=== PATIENT | female | born 1965 | race Caucasian/White ===

== ENCOUNTER → 2020-02-26 12:01 | Outpatient (REF) | payer OTHER, SELFPAY | LOC: ANHLAB 12:01 | PROVIDERS: PCP Family Medicine Adolescent Medicine; Visit Provider Nurse Practitioner | DX: C44.612 Basal cell carcinoma of skin of right upper limb, including shoulder (principal); C44.619 Basal cell carcinoma of skin of left upper limb, including shoulder | CPT/HCPCS: 88305 ==

== ENCOUNTER 2020-12-02 10:38 | Outpatient (CLI) | payer OTHER, SELFPAY ==
--- NOTE | 2020-12-02 10:52 | ECG_ITS ---
Measurements Intervals [place] Rate: 72 P: 53 [place]: 151 QRS: 31 QRSD: 80 T: 19 QT: 367 QTc: 404 Interpretive Statements SINUS RHYTHM BASELINE ARTIFACT- I, II, III, AVR, AVL, AVF NORMAL ECG Electronically Signed On 12-02-2020 11:56:46 CDT by Thony Christine D.O.
[2020-12-02 11:26] LABS: Hematocrit 39.4 % (37.0-47.0); Hemoglobin 13.3 g/dL (12.0-15.0)
== END 2020-12-02 10:39 | disposition home or self-care (01) ==
PROVIDERS: Anesthesiology; PCP Family Medicine Adolescent Medicine; Visit Provider Surgery Plastic and Reconstructive Surgery
DX: Z01.810 Encounter for preprocedural cardiovascular examination (principal); Z41.1 Encounter for cosmetic surgery
CPT/HCPCS: 36415; 85014; 85018; 93005

== ENCOUNTER → 2020-12-06 00:13 | Outpatient (CLI) | payer OTHER, SELFPAY ==
[2020-12-06 19:13] LABS: SARS-CoV-2 RNA PCR Negative
== END ==
PROVIDERS: PCP Family Medicine Adolescent Medicine; Visit Provider Surgery Plastic and Reconstructive Surgery
DX: Z01.812 Encounter for preprocedural laboratory examination (principal); Z20.822 Contact with and (suspected) exposure to COVID-19
CPT/HCPCS: C9803; U0003; U0005

== ENCOUNTER 2020-12-09 00:33 | Day surgery (SDC) | payer OTHER, SELFPAY ==
[2020-11-28 14:58] VITALS: BMI 25.6
[2020-12-09] VITALS (9 sets, daily range): BP systolic 106–153; BP diastolic 70–91; PULSE 76–109; RESP 10–20; TEMP 36.3–37.1; O2SAT 93–100
--- NOTE | 2020-12-09 06:35 | WPDANESEPPF ---
Anes - Initial Pre Proc Eval Procedure: Operation Date: 12/09/20 07:30 Proposed Procedures p Bilateral Upper Eyelid Blepharoplasty - Sha Thompson MD s Face And Neck Lift With Facial Fat Grafting - Sha Thompson MD Date/Time: 12/09/20 06:35 Surgeon: Sha Thompson MD Pre Op Diagnosis: Dermatochalasis, Skin Laxity Patient Data Age: 54 Gender: F Height: 5 ft 2 in Weight: 63.5 kg Allergies Allergy/AdvReac Type Severity Reaction Status Date / Time No Known Allergies Allergy Verified 11/28/20 14:57 Home Medications Medication Instructions Recorded Confirmed Type docusate sodium 100 mg capsule 100 mg PO DAILY #14 cap 11/24/20 11/28/20 Rx ondansetron HCl 4 mg tablet 4 mg PO Q8H #28 tablet 11/24/20 11/28/20 Rx oxycodone-acetaminophen 5 mg-325 1 tablet PO Q6H PRN #15 tablet 11/24/20 11/28/20 Rx mg tablet biotin 10,000 mcg PO DAILY 11/28/20 11/28/20 History Patient hx anesthesia problems: none Family hx anesthesia problems: none PMFSH Social History Social History Smoking status: Never smoker Tobacco type: cigarettes Alcohol intake: never Substance use: never Substance use type: does not use Living arrangements: with family Spiritual care concerns: No Anes - Eval Final PreProcedure Day of Procedure 12/09/20 06:35 Patient weight: normal Heart: regular rate and rhythm Lungs: clear to auscultation Airway: Mallampati scale class 1 Neurological: alert and oriented Last oral intake: >/= 8 hours ASA classification: I Emergent: no Anesthetic plan: proceed Anesthesia type and monitoring: general ETT and standard monitoring Informed Consent: The patient's anesthetic plan and its attendant risks and benefits were discussed with the patient/family/POA. Questions were solicited and answers provided to the satisfaction of the patient/family/POA.
--- NOTE | 2020-12-09 06:46 | WPDHPUPDATE1 ---
History and Physical Update Update Date/Time: 12/09/20 06:46 History and Physical has been reviewed, including an updated exam of the patient. There are NO changes in the patient's condition. Risks, benefits, and alternatives have been discussed and questions answered. Patient agrees to proceed with procedure.
[2020-12-09] MEDS: LACTATED RINGERS 1,000 ML 30 ML IV CONT ×2 (06:50→13:18)
[2020-12-09 07:09] LABS: Urine Cotinine NEGATIVE
--- NOTE | 2020-12-09 07:17 | PM.PROC ---
Procedure Note - Detailed Date of procedure: 12/09/20 Pre-op diagnosis: Dermatochalasis, Skin Laxity Post-op diagnosis: same Procedure performed: 1. Bilateral upper eyelid blepharoplasty 2. Face and neck lift 3. Facial fat graft Description of procedure: Patient was marked in the preoperative holding area with her and her 's verification. Risks, benefits, alternatives were discussed in extensive detail. Want them to be very realistic about the risks involved as well as expectations. Made sure answered all of their questions are satisfaction. We discussed risks in great detail including but not limited to permanent dry eyes, visual changes, loss of vision, contour irregularities, asymmetry, and facial nerve injury. All questions answered and consent obtained. Patient was taken to the operating room placed supine on the operating room table. Anesthesia was provided by anesthesiology and prepped and draped in a standard sterile fashion. Surgical time-out was taken. 14 gauge needle was used to make a puncture site at the abdomen after thorough abdominal examination. I tumesced a tumescent solution. Once adequate time for hemostasis I used a 3 mm multi hole suction cannula to obtain the lipoma aspirate. Prior to use I did I will allow adequate time for separation on the back table using the central portion only later in the procedure. Preoperatively and prior to injection I did a pinch test again to make sure there is no lagophthalmos. 1% lidocaine and 0.25% Marcaine with epinephrine was used anesthetize for the upper eyelid blepharoplasty. Fifteen blade used to make an incision in excise the skin flap. I opened the medial and middle compartments making sure removed only what was clearly excess adiposity. This was closed using a running subcuticular 4-0 Prolene. I tumesced the face with a tumescent solution. Gave adequate time for hemostasis. I was careful to avoid the areas for planned fat grafting. Fat grafting was completed in the temporal region, zygomatic, under eyes as well as along nasolabial and marionette lines and is necessary for facial contouring based on photographs she provided, conversation, and observations. This was with a single port 1.2mm cannula. Total fat grafting volume 22cc. Fifteen blade used to make a submental incision. She had a previous submental scar however this was too far anterior and had to go posterior to this. Dissection was continued down elevated well-vascularized skin flaps along the neck. Identified the platysma and elevated sub platysmal until full exposure of the submental triangle and partially submandibular. Once I was happy with the contour of the submental neck 15 blade used to make the remainder of the incisions. I elevated skin flaps just as necessary for good visualization. I did SMAS plication based on her preoperative plan with 2-0 PDS then 3-0 Vicryl. I removed sub platysmal fat just as necessary to provide a good contour. I plicated the anterior digastric muscles using 3-0 Vicryl. I divided the platysma as necessary. This was repaired using 3-0 Vicryl. Bilateral 10 mm Spencer drains were placed which were brought out postauricular and sutured in place with 3-0 Vicryl. The left drain was deep to the platysma the right drain was anterior to the platysma. I irrigated the pockets. Verified strict hemostasis. Verified good contour. Hemoderm was used bilateral. I then tailor tacked the skin flaps under no tension and position. These were trimmed as necessary. Repaired with 4-0 Monocryl. Along the hairline a use lamont. Preauricular I used 5 0 nylon. Postauricular 5 0 chromic. I secured her upper eyelid blepharoplasty sutures in place using Steri-Strips. Dressings placed. Anesthesia: GETA Surgeon: Sha Thompson MD Estimated blood loss (mL): 50 Drains: Yes (Bilateral 10 mm Spencer) Packing: No Pathology: none sent Complications: No immediate complications Condition: stab
[2020-12-09] MEDS: ceFAZolin 2 GM/D5W 50 ML 2 GM/50 ML BAG IVPB (07:27)
[2020-12-09] MEDS: LIDO 1%/EPINEPHRINE 1:100,000 50 ML VIAL 10 ML INFILTRATE (09:06)
[2020-12-09] MEDS: ceFAZolin SODIUM 1 GM VIAL 2 GM IV PUSH (11:27)
[2020-12-09] MEDS: fentaNYL CITRATE INJ (*CRX) 100 MCG/2 ML VIAL 25 MCG IV PUSH (14:17)
[2020-12-09] MEDS: MORPHINE SULFATE (*CRX) 2 MG/ML INJ IV PUSH (14:41)
[2020-12-09] MEDS: LACTATED RINGERS 1,000 ML 125 ML IV CONT (14:42)
--- NOTE | 2020-12-09 15:06 | PC.NURSE ---
This patient, Juliana Glover, was received from PACU on 12/09/20 at 1454. Patient/family oriented to unit policies and routines
[2020-12-09] MEDS: TETRACAINE HCL 0.5% OPHTH SOLN 4 ML BTL 1 DROP EACH EYE (15:15)
[2020-12-09] MEDS: TETRACAINE HCL 0.5% OPHTH SOLN 4 ML BTL 1 DROP LEFT EYE (16:00)
[2020-12-09] MEDS: BALANCED SALT SOLN OPHTH IRRIG 30 ML BTL EACH EYE (16:15)
--- NOTE | 2020-12-09 16:15 | PC.NURSE ---
Dr. Thompson at bedside. Eye flushed with BSS and Tetracine eye dropps placed in left eye. Pt. states that eye is feeling a bit better. Dr. Thompson remains at bedside discussing plan of care with pt. Pt. more relaxed and comfortable at this time. Order received to allow pt. to keep eye gel at bedside and to use when necessary. Pt. verbalized understanding.
[2020-12-09] MEDS: carisoprodoL (*CRX) 350 MG TABLET PO ×2 (18:00→23:33)
[2020-12-09] MEDS: oxyCODONE/ACETAMINOPHEN (*CRX) 5-325 MG TABLET PO ×2 (18:00→23:33)
[2020-12-09] MEDS: DOCUSATE SODIUM 100 MG CAPSULE PO (20:27)
[2020-12-10] VITALS: RESP 20; O2SAT 100
[2020-12-10 05:00] VITALS: BP 124/86; PULSE 76; RESP 20; TEMP 36.8; O2SAT 100
[2020-12-10] MEDS: oxyCODONE/ACETAMINOPHEN (*CRX) 5-325 MG TABLET PO (05:48)
[2020-12-10] MEDS: carisoprodoL (*CRX) 350 MG TABLET PO (05:49)
--- NOTE | 2020-12-10 06:58 | WPDPN ---
Progress Note: A&P Assessment and Plan (1) Dermatochalasis of both upper eyelids: Code(s): H02.831 - Dermatochalasis of right upper eyelid; H02.834 - Dermatochalasis of left upper eyelid Status: Acute Assessment and Plan: She is doing very well after Bilateral upper eyelid blepharoplasty Face and neck lift Facial fat grafting Will discharge home. She has a full list of instructions. Today we spent extensive time discussing the care. What to monitor for. I will see her back. She will call with any questions or concerns. (2) Encounter for cosmetic surgery: Code(s): Z41.1 - Encounter for cosmetic surgery Status: Acute Time Spent With Patient Time with patient: 15 - 25 minutes Review of Systems Review of Systems: All systems reviewed & are unremarkable except as noted in HPI and below Exam Narrative: Exam Narrative: CN 2-12 grossly intact. PERRLA EOMI. Normal gross vision. Healing well. No signs of infection. No hematoma. No seroma. Good color and capillary refill. No calf tenderness. Negative Homans. Objective Data Vital Signs Vital Signs: Vital Signs - 24 hr 12/09/20 07:00 12/09/20 13:28 12/09/20 13:43 Temperature 36.3 C L 37.1 C 36.6 C Pulse Rate 76 109 H 87 Respiratory Rate 18 10 L 12 Blood Pressure 153/91 H 106/70 107/78 Pulse Oximetry 99 98 94 12/09/20 13:58 12/09/20 14:12 12/09/20 15:00 Temperature 36.3 C L Pulse Rate 87 91 89 Respiratory Rate 12 16 18 Blood Pressure 117/84 119/74 123/73 Pulse Oximetry 93 94 12/09/20 18:20 12/09/20 18:30 12/09/20 23:30 Temperature 37.0 C 36.5 C Pulse Rate 89 90 Respiratory Rate 20 20 20 Blood Pressure 113/72 112/77 Pulse Oximetry 100 100 100 12/10/20 00:00 12/10/20 05:00 Temperature 36.8 C Pulse Rate 76 Respiratory Rate 20 20 Blood Pressure 124/86 Pulse Oximetry 100 100 Intake/Output Intake/Output: Intake & Output 12/07/20 12/08/20 12/09/20 12/10/20 23:59 23:59 23:59 23:59 Intake Total 1070 Output Total 48 Balance 1022 Meds/Results Medications: Active Medications Generic Name Dose Route Start Last Admin Trade Name Freq PRN Reason Stop Dose Admin Artificial Tears 1 drop 12/09/20 15:01 Artificial Tears Op Soln 15 Ml Bottle EACH EYE QID PRN Dry Eye(s) Carisoprodol 350 mg 12/09/20 18:00 12/10/20 05:49 Carisoprodol (*Crx) 350 Mg Tablet PO 350 mg Q6HR OH Administration Docusate Sodium 100 mg 12/09/20 21:00 12/09/20 20:27 Docusate Sodium 100 Mg Capsule PO 100 mg Q12HR OH Administration Enoxaparin Sodium 40 mg 12/10/20 09:00 Enoxaparin 40 Mg/0.4 Ml Syringe SUB-Q DAILY OH Morphine Sulfate 2 mg 12/09/20 13:33 12/09/20 14:41 Morphine Sulfate (*Crx) 2 Mg/Ml Inj IV PUSH 2 mg Q2H PRN Administration Pain Ondansetron HCl 4 mg 12/09/20 13:33 Ondansetron Inj 4 Mg/2 Ml Vial IV PUSH Q6H PRN Nausea Oxycodone/Acetaminophen 1 - 2 tablet 12/09/20 13:33 12/10/20 05:48 Oxycodone/Acetaminophen (*Crx) 5-325 Mg Tablet PO 2 tablet Q6H PRN Administration Pain Tetracaine HCl 1 drop 12/09/20 16:55 12/09/20 16:00 Tetracaine Hcl 0.5% Ophth Soln 4 Ml Btl LEFT EYE 1 drop Q6H PRN Administration Pain Labs Labs: Laboratory Results - last 24 hr 12/09/20 06:44 Cotinine Negative Subjective Date/time seen: 12/10/20 06:58 Yesterday evening and went to see her if she was having significant left eye pain. She felt like something was in the eye. There a washed out her eye, use tetracaine eyedrops and evaluated. There is a small foreign material that appeared to be dust or some other foreign material. White very small in nature. Came out easily. Following this she has been using Gentyle gel and her discomfort has essentially resolved. She feels like she has normal gross vision. No complaints and doing well.
--- NOTE | 2020-12-10 07:04 | P.DS_ITS ---
DS: Admitting Diagnosis Admitting Diagnosis Admitting Diagnosis: Dermatochalasis bilateral upper eyelids Encounter cosmetic surgery DS: Discharge Diagnosis Discharge Diagnosis (1) Dermatochalasis of both upper eyelids: Code(s): H02.831 - Dermatochalasis of right upper eyelid; H02.834 - Dermatochalasis of left upper eyelid Status: Acute (2) Encounter for cosmetic surgery: Code(s): Z41.1 - Encounter for cosmetic surgery Status: Acute DS: Summary Hospital Course Hospital Course: She underwent: * Bilateral upper eyelid blepharoplasty * Face and neck lift * Facial fat graft Postoperatively she initially had some discomfort in the left eye. We able to irrigate the eye and she had significant improvement in his had no pain since. Otherwise done very well. Will discharge home. Time Spent with Patient Time attestation: Total time spent providing and/or coordinating discharge services: 20 minutes Exam Narrative: Exam Narrative: CN 2-12 grossly intact. PERRLA EOMI. Normal gross vision. Healing well. No signs of infection. No hematoma. No seroma. Good color and capillary refill. No calf tenderness. Negative Homans. DS: Data Data Completed and Pending Labs on day of discharge: Labs from last 24 hours 12/09/20 06:44 Cotinine Negative Discharge Plan Discharge Patient Disposition: Home, Self-Care Discharge Instructions: POST OPERATIVE DISCHARGE INSTRUCTIONS FOR SHA THOMPSON M[facility] [address] [place] [address] * No driving for 24 hours after anesthesia and while you are taking pain medication. * Take all prescribed medication as directed * Diet as tolerated. * No lifting or activity that raises blood pressure for 48 hours. * Regular walking / ambulation. * No showering until directed to. Once you shower do not take pain medication before showering as the combination of medication and heat may cause you to feel dizzy or pass out. * No pools or tubs for 2 weeks. * Call with any questions or concerns. * Dressing Care: May shower. * GenTyle eye gel or intment (not drops) as needed. If you have any questions or concerns, please call the office . If it is after hours you will be directed to the stationary engineer exchange. Shortness of breath, chest pain, or other medical emergency dial 911 / proceed to the Emergency Room. Patient Instructions: [facility] Drain Care (DC) Stand Alone Forms: General Discharge Instructions Follow-up/Referrals: Sha Thompson MD [Physician] - Other (f/u Tuesday12/12/2020 for drain removal f/u Tuesday12/15/2020 for suture removal) Discharge Medications: Continued ondansetron HCl [Zofran] 4 mg tablet 4 mg PO Q8H Qty: 28 RF: 0 docusate sodium [Colace] 100 mg capsule 100 mg PO DAILY Qty: 14 RF: 0 oxycodone-acetaminophen [Percocet] 5-325 mg tablet 1 tablet PO Q6H PRN (Reason: pain) Qty: 15 RF: 0 biotin 10,000 mcg Tablet,Disintegrating 10,000 mcg PO DAILY RF: 0
--- NOTE | 2020-12-10 07:52 | WPDANESPN ---
Anes - Prog Note Post-Op Date/Time: 12/10/20 07:52 Cardiovascular status: normal Respiratory status: normal Airway patency: baseline Mental status: baseline Post-Op hydration status: normal Vital Signs: Last Vital Signs Temp 36.8 C 12/10/20 05:00 Pulse 76 12/10/20 05:00 Resp 20 12/10/20 05:00 BP 124/86 12/10/20 05:00 Pulse Ox 100 12/10/20 05:00 Pain Score (VAS): 2/10 I/O: Intake & Output 12/09/20 12/09/20 12/10/20 15:59 23:59 07:59 Intake Total 895 249 0200 Output Total 48 8 Balance 680 886 1192 Post-procedural complaints: none Patient Feedback: Patient satisfied with anesthetic care.
[2020-12-10 08:15] VITALS: BP 116/80; PULSE 77; RESP 16; TEMP 36.6; O2SAT 98
[2020-12-10] MEDS: ONDANSETRON INJ 4 MG/2 ML VIAL IV PUSH (08:31)
[2020-12-10] MEDS: ENOXAPARIN 40 MG/0.4 ML SYRINGE SUB-Q (08:32)
[2020-12-10] MEDS: DOCUSATE SODIUM 100 MG CAPSULE PO (08:32)
== END 2020-12-10 11:55 | disposition home or self-care (01) ==
LOC: ANHSURGERY 08:33 → ANHOB2 14:21
PROVIDERS: PCP Family Medicine Adolescent Medicine; Visit Provider Surgery Plastic and Reconstructive Surgery
PROC: (CPT 15822; principal; 2020-12-09 07:30)
PROC: (CPT 15824; 2020-12-09 07:30)
DX: Z41.1 Encounter for cosmetic surgery (principal); H02.834 Dermatochalasis of left upper eyelid; H02.831 Dermatochalasis of right upper eyelid; L57.4 Cutis laxa senilis; Z79.899 Other long term (current) drug therapy
CPT/HCPCS: 15822; 15829; 15773; 36415; 80307; 85014; 85018; 93005; 99199; A9270; C9803; J0131; J0171; J0690; J1100; J1170; J1650; J2250; J2270; J2370; J2405; J2704; J3010; J7120; Q9968; U0003; U0005

== ENCOUNTER 2025-04-04 10:44 | Outpatient (CLI) | payer BC, SELFPAY ==
--- NOTE | ~2025-04-04 | US_ITS ---
EXAMINATION: US pelvic complete w TV DATE: 04/04/2025 11:21 INDICATION: Secondary ovarian failure TECHNIQUE: Multiple transabdominal and endovaginal sonographic images of the pelvis were obtained. COMPARISON: None. FINDINGS: Uterus: Surgically absent. Right Ovary: Not visualized. Left Ovary: Not visualized. There is no free fluid in the pelvis. IMPRESSION: Bilateral ovaries not visualized. Status post hysterectomy. No significant pelvic fluid collection. N o solid or cystic pelvic/adnexal mass detected. Reviewed, dictated and finalized at location K. IMPRESSION: Bilateral ovaries not visualized. Status post hysterectomy. No significant pelv ic fluid collection. No solid or cystic pelvic/adnexal mass detected.
== END 2025-04-04 10:45 | disposition home or self-care (01) ==
PROVIDERS: PCP Nurse Practitioner Family; Visit Provider Obstetrics & Gynecology Gynecology
DX: E28.39 Other primary ovarian failure (principal); Z90.710 Acquired absence of both cervix and uterus
CPT/HCPCS: 76830; 76856